=== PATIENT | male | born 1950 | race Caucasian/White ===

== ENCOUNTER → 2016-10-29 | Outpatient (CLI) | payer MEDICARE ==
[~2016-10-29] MED LIST: AMLO5TAB22 PO; CIPR500T4 PO; HYDR-2768 PO; LISI-363 PO; LOVA40TA PO; LYRI100C PO; NOVO7030P2 SQ; PERC5TAB12 PO; PRIL20CA PO
== END ==
LOC: CLAB 09:48
PROVIDERS: ATTEND Internal Medicine Gastroenterology
DX: R14.0 Abdominal distension (gaseous) (principal)
CPT/HCPCS: 36415; 82140

== ENCOUNTER → 2016-12-31 | Outpatient (CLI) | payer MEDICARE | LOC: CLAB 10:52 | PROVIDERS: ATTEND Internal Medicine Gastroenterology | DX: R14.0 Abdominal distension (gaseous) (principal) | CPT/HCPCS: 36415; 82140 ==